=== PATIENT | male | born 1985 | race Caucasian/White ===

== ENCOUNTER 2018-07-11 17:03 | Emergency (ER) | payer OTHER ==
[~2018-07-11] VITALS: Ht 172.7 cm; Wt 81.7 kg
[~2018-07-11 17:03] MED LIST: ACETAMINOPHEN-1 EAC1 PO; AMOXICILLIN 50500 MG PO; GLUCAGON; HYDROCODON-ACE1 EAC7 PO; LANTUS100 UNIT/M; LANTUSSOLASTAR SC; LEVEMIR; LORTAB 5 MG/5001 TA1 PO; NEXIUM40 MG; NOVOLIN R100 UNIT/1; NOVOLOG100 UNIT/1; PHENERGAN 25 MG25 M1 PO; SUBOXONE 8 MG-1 EAC3 SL; VALIUM5 MG PO; ZANTAC 150MG T150 MG; ZANTAC PO; [UNRECOGNIZED DRUG - OTHER]
[2018-07-11 18:25] VITALS: BP 125/75
== END 2018-07-11 18:25 | disposition home or self-care (01) ==
LOC: M.ERS 17:03
DX: M13.811 Other specified arthritis, right shoulder (principal); E10.9 Type 1 diabetes mellitus without complications